=== PATIENT | female | born 1950 | race Caucasian/White ===

== ENCOUNTER → 2017-10-13 | Day surgery (SDC) | payer OTHER, MEDICARE ==
[~2017-10-13] VITALS: Ht 154.9 cm; Wt 92.5 kg
--- NOTE | 2017-10-13 10:16 | Operative Report ---
Operative/Inv Procedure Report Surgery Date: 10/13/17 Name of Procedure: left ESWL with cystoscopy and left stent placement Pre-Operative Diagnosis: left UPJ stone 1.4cm Post-Operative Diagnosis: same Estimated Blood Loss: scant Surgeon/Sign Builder: Jennifer Hansen MD Anesthesia: local monitored anesthesi Drains: 6x22cm stent Specimens: none Complications: none Condition: stable Operative Indication: right UPJ stone Operative/Procedure Note Note: 67yo female with a hx of kidney stones. She had a CT scan in Apr with quite a large stone on the left side at 1.4cm but no intervention sought. two smaller ones 1mm in size at LUP and left UVJ. She has had ESWL and URS in the past. She has also passed sizeable stones as well. She recently developed frequency and urgency in the last two weeks with difficulty voiding. She has intermittent hematuria as well. She is interested in having her large stone treated with ESWL. Consent was signed in the holding area after the risks, benefits and alternativews reveiwed again. Patient was taken to the operating room and placed in the supine position. Time out was performed. IV antibiotics were infused. She was palced in the dorsal lithotomy position and prepepd and draped in the standard sterile fashion. Cystoscopy was performed and the bladder was globally inspected. No abnormalities appreciated. Left ureteral orifice was cannulated with a Solo bard guidewire and then a 6x22cm stent was placed over it. the stent was seen to be in good position and the wire was removed. The bladder was emptied and the patient was placed back into the supine position and optimized for ESWL. Flouroscopy showed the stent to be in good position and the UPJ stone was easily identified. The shocks were started. She received a total of 2500 shocks at a power ranging from 1-20. THe stone was visibly changed at the end of the procedure. Still visible but hazier. SHe tolerated the procedure well and was transferred to the recovery room in stable condition. Findings: left UPJ stone 1.4cm that was visibly changed after ESWL
== END ==
LOC: STS 03:36
DX: N20.0 Calculus of kidney (principal); Z87.442 Personal history of urinary calculi; R39.198 Other difficulties with micturition; N39.46 Mixed incontinence; J43.9 Emphysema, unspecified; Z87.891 Personal history of nicotine dependence; E11.9 Type 2 diabetes mellitus without complications; Z79.84 Long term (current) use of oral hypoglycemic drugs
CPT/HCPCS: 1263; 36415; 93005; 93010; C2617; J0690; J2250; J2405

== ENCOUNTER → 2017-10-24 | Day surgery (SDC) | payer OTHER, MEDICARE ==
[~2017-10-24] VITALS: Ht 154.9 cm; Wt 92.5 kg
--- NOTE | 2017-10-24 17:13 | Operative Report ---
Operative/Inv Procedure Report Surgery Date: 10/24/17 Name of Procedure: left ureteroscopy with laser lithotripsy, stone extraction and stent exchange Pre-Operative Diagnosis: left ureteral stones Post-Operative Diagnosis: same Estimated Blood Loss: scant Surgeon/Cover Inspector: Jennifer Hansen MD Anesthesia: laryngeal mask airway Drains: 6x22cm stent Specimens: stone fragments Complications: none Condition: stable Operative Indication: left ureteral stones with pain Operative/Procedure Note Note: Is a 67-year-old female with a history of a left renal stone in the UPJ. She was status post ESWL with stent on 10/13/2017 but postop KUB showed a 7 mm mid ureter stone. Patient continued to have pain on the left flank and was very bothered by the ureteral stent. She wished to proceed with a more definitive surgery like ureteroscopy with laser lithotripsy and stone extraction. She was given the risks benefits and alternatives of the surgery. She wished to proceed. This was discussed with the patient in the office in the holding area. All questions were answered. Consent was signed. Patient was taken to the operating placed on the operating table in supine position. Timeout was performed. IV antibodies were infused. LMA anesthesia was begun. She was placed in the dorsolithotomy position and prepped and draped in standard sterile fashion. Cystoscopy was performed and the forceps were used to grab the left ureteral stent. This was brought out to the urethral orifice and was cannulated with the Amplatz Super Stiff wire. The wire was placed into the renal pelvis with fluoroscopic guidance. The stent was removed. The wire was clamped to the sterile sheets. A semirigid ureteroscope was then placed up the ureter carefully and traversed up to the level of the stone which is proximally L4 mid ureter. The 2 under 78 laser fiber was then used to fragment the stones. This was done until the stones were suitable sized to removed with the 0 tip basket. 0 tip basket was then placed and was used to remove the multiple fragments. There were more then 10 until 12 fragments that were removed. The stones were yellow and crystalline in color as well as brown and very hard. The ureteroscope was then used to go up to the UPJ to look for any remaining stone fragments. None were seen on the past out. The Amplatz Super Stiff wire was then used with the cystoscope to place a 6 x 22 cm ureteral stent. Seen to be in good position by fluoroscopy and visually in the bladder. The wire was removed and the stent was seen to be in good position. The bladder was emptied. The stones were sent to pathology. The patient tolerated the procedure well and transferred to the stable condition. Findings: Left mid ureter stones Discharge Disposition: PACU
--- NOTE | 2017-10-25 11:32 | RADIOLOGY REPORT ---
EXAMINATION: CR ABDOMEN/INTRAOPERATIVE FLUOROSCOPY CLINICAL INDICATION: Left ureteroscopy. COMPARISON: [facility] dated 10/21/2017. CT scan of the abdomen and pelvis dated 10/01/2017. TECHNIQUE/FINDINGS: Fluoroscopic equipment was dedicated to the operating room for the performance of an intraoperative procedure. Several (9) spot films were acquired and are archived in PACS. Please refer to operative notes for procedural detail. FLUOROSCOPY TIME: 12 seconds. IMPRESSION: Administrative dictation for intraoperative fluoroscopy and image archiving in PACS. Please refer to operative notes for details.
== END ==
LOC: STS 03:00
DX: N20.1 Calculus of ureter (principal); Z87.442 Personal history of urinary calculi; R39.198 Other difficulties with micturition; J43.9 Emphysema, unspecified; Z87.891 Personal history of nicotine dependence; I10 Essential (primary) hypertension
CPT/HCPCS: 76000; C2617; J0690; J2250